=== PATIENT | female | born 1950 | race Caucasian/White ===

== ENCOUNTER 2016-10-05 03:27 | Inpatient (IN) | payer MEDICARE, OTHER ==
--- NOTE | ~2016-10-05 | DS ---
Discharge Summary [facility] [address] [place]. [address] NAME: ELIEZER MUNGUIA : 52 STATUS : DIS IN PAT#: [id number] AGE: 65 ADM/REG DATE : 10/05/16 MR#: [id number] REPORT SERV DATE: 10/10/16 DICTATED BY: JOHN DSOUZA DATE: 10/10/16 REPORT STATUS : Draft TRANSCRIBED BY: MODL DATE: 10/10/16 ADMISSION DATE: 10/05/2016 DISCHARGE DATE: 10/10/2016 DIAGNOSIS ON ADMISSION: 1. Severe hyponatremia with a sodium of 114; history of hyponatremia in the past; hold Lasix; hold hydrochlorothiazide. 2. Chronic obstructive pulmonary disease exacerbation. 3. Diabetes. 4. History of cerebrovascular accidents in the past. 5. Hypothyroidism. 6. History of bipolar disorder with anxiety and depression. DIAGNOSIS ON DISCHARGE: 1. Hyponatremia present on admission, resolved. Her diuretic and Zoloft discontinued. Hyponatremia related to Zoloft and diuretics. 2. Chronic obstructive pulmonary disease exacerbation resolved. 3. Diabetes mellitus controlled. 4. Mildly minimally elevated troponin on admission, related to demand ischemia. Evaluated by fence installer Dr. Cadena. Continue medical treatment. 5. History of depression, currently not depressed. We will hold Zoloft since it is decreasing her sodium significantly. Stable mood. 6. History of bipolar disorder, stable mood on Zyprexa. 7. History of chronic obstructive pulmonary disease. 8. Chronic obstructive pulmonary disease exacerbation present on admission, resolved. CONSULTANTS ON THE CASE: Food Service Technician Dr. Cadena, on 10/05/2016, for abnormal troponin. IMAGING STUDIES: Chest x-ray on 10/05/2016, cardiomegaly, mild vascular prominence. The chest is improved in comparison with previous study. Echocardiogram done on 10/06/2016, showed normal left ventricular systolic function with ejection fraction 50 to 55%. Grossly normal right ventricular size and function. Mild diastolic dysfunction. HISTORY OF PRESENT ILLNESS: Briefly, this is a very pleasant 65-year-old female who was admitted by my colleague, Dr. Arash Mortensen on October 05 with cough, shortness of breath, and evidence of severe hyponatremia. For the details, see history of present illness dictated by Dr. Mortensen. HOSPITAL COURSE: Briefly, the patient was admitted to the hospital and she was seen next day by Dr. Yip and also fence installer was consulted, Dr. Cadena, who evaluated the patient and he thinks that her minimally elevated troponin is related to demand ischemia. He recommended to continue her recommended medications per Cardiology as well as her COPD exacerbation has resolved. She does not have shortness of breath. Her hyponatremia was still fluctuating on October 07 when I started to see this patient, her sodium was 129 and then came down to 126 on October 08. It was noted that patient is on Zoloft since her diuretics were discontinued on admission, but the Zoloft was still continued. The patient Discharge Summary [place] [id number] [facility] [place]. [address] NAME: ELIEZER MUNGUIA : 52 STATUS : DIS IN PAT#: [id number] AGE: 65 ADM/REG DATE : 10/05/16 MR#: [id number] REPORT SERV DATE: 10/10/16 DICTATED BY: JOHN DSOUZA DATE: 10/10/16 REPORT STATUS : Draft TRANSCRIBED BY: JULI DATE: 10/10/16 reported that she takes Zoloft for a long time for depression as well as she is on Zyprexa possibly for bipolar disorder. The patient was told that Zoloft can cause hyponatremia which could be dangerous for life, so it was recommended the patient to hold Zoloft and see how is her mood without Zoloft. For the last two days, she did not receive Zoloft and her mood looks good, so we will recommend to discontinue Zoloft, continue Zyprexa and to see if she will tolerate this regimen. The patient also wanted inpatient rehabilitation, so she was said to [facility]. Her hypertension has been controlled. She was recommended to continue incentive spirometry. Today her sodium improved significantly and it was 130 which is a very good achievement for this patient. The patient was discharged in stable condition on 1. Norvasc 10 mg a day. 2. Aspirin 81 mg a day. 3. Lipitor 40 mg a day. 4. Colace 100 mg p.o. b.i.d. 5. Doxycycline 100 mg twice daily for two more days. 6. Flonase nasal spray two sprays to each nostril twice a day. 7. Levothyroxine 50 mcg a day. 8. Losartan 50 mg a day. 9. Nystatin 5 mL p.o. t.i.d. 10.Zyprexa 10 mg p.o. b.i.d. 11.Requip 1 mg daily. 12.Advair Diskus two puffs inhaled twice a day. 13.Hydrocodone with acetaminophen 5/325 mg one tablet p.o. b.i.d. p.r.n. for pain. Prescription given a total of 12 pills without any refill. 14.Clonidine 0.1 mg p.o. t.i.d. p.r.n. for systolic blood pressure above 160; diastolic above 100. 15.Hydroxyzine 25 p.o. q.6 hours p.r.n. for itching. 16.Zoloft was discontinued. 17.Zantac 300 mg daily. The patient was discharged in stable condition to [facility]. After discharge from [facility], she needs to follow up with her primary care physician as well as with fence installer. Also the patient was recommended to continue Lyrica at 75 mg p.o. twice a day. I spent 45 minutes on discharge. DICTATED BY: Petey Sanders/JULI John Dsouza M.D. Discharge Summary [address] [address] NAME: ELIEZER MUNGUAI : 52 STATUS : DIS IN PAT#: [id number] AGE: 65 ADM/REG DATE : 10/05/16 MR#: [id number] REPORT SERV DATE: 10/10/16 DICTATED BY: JOHN DSOUZA DATE: 10/10/16 REPORT STATUS : Draft TRANSCRIBED BY: MODL DATE: 10/10/16 / [id number] CC: Petey Sanders M.D.
--- NOTE | ~2016-10-05 | HP ---
History And Physical [place] [address] [place]. [address] NAME: ELIEZER MUNGUIA : 52 STATUS : ADM IN [facility]#: [id number] AGE: 65 ADM/REG DATE : 10/05/16 MR#: [id number] REPORT SERV DATE: 10/05/16 DICTATED BY: KAREEN PETERSEN DATE: 10/05/16 REPORT STATUS : Draft TRANSCRIBED BY: MODKina DATE: 10/05/16 DATE OF ADMISSION: 10/05/2016 CHIEF COMPLAINT: A 65-year-old female presenting with cough, shortness of breath, evidence of hyponatremia. HISTORY OF PRESENT ILLNESS: The patient's history was obtained through careful interview with the patient, coupled with review of [facility] medical records. The patient states that for several days she has had a cough productive of clear sputum and increasing shortness of breath characterized by dyspnea on exertion with a prominent wheeze. She has developed subjective fevers and chills, and become lightheaded and incoherent and feeling confused at times. She admits to having a very poor appetite with no significant food intake for about 24 hours or more. She has had several episodes of vomiting as well with constant nausea over the last few days. She describes chest discomfort, a sharp aching quality at the base of her lungs, 8/10 severity exacerbated by coughing. No abdominal pain. No change of bowel or bladder habit. REVIEW OF SYSTEMS: Otherwise 14-point review of systems was obtained and was negative. PAST MEDICAL HISTORY: 1. COPD with history of hypercapnic respiratory failure. 2. Chronic hyponatremia. Baseline sodium seems to be around 128, but she had a sodium of 116 in March 2016 with negative studies for SIADH with low urine sodium, low urine osmolality at that time, other sodiums have been around 122 and 123. 3. Coronary artery disease, status post CABG. 4. Obstructive sleep apnea, but noncompliant with CPAP/obesity hypoventilation syndrome. 5. Childhood asthma. 6. Bilateral occipital stroke, left greater than right. 7. Hypertension. 8. Restless legs syndrome. 9. Diabetes. 10.Hypothyroidism. 11.Chronic pain syndrome with narcotic and benzodiazepine abuse at times. 12.Bipolar disorder with anxiety and depression. 13.Mediastinal lymphadenopathy with negative PET scan in 2009. 14.Left carotid disease and right carotid endarterectomy. 15.Panniculitis. History And Physical [address] [place]. [address] NAME: ELIEZER MUNGUIA : 52 STATUS : ADM IN PAT#: [id number] AGE: 65 ADM/REG DATE : 10/05/16 MR#: [id number] REPORT SERV DATE: 10/05/16 DICTATED BY: KAREEN PETERSEN DATE: 10/05/16 REPORT STATUS : Draft TRANSCRIBED BY: JULI DATE: 10/05/16 PAST SURGICAL HISTORY: 1. Hysterectomy. 2. Cholecystectomy. 3. Appendectomy. 4. Ankle surgeries for crush injury. 5. CABG in 2006. 6. Laparoscopy for a bowel obstruction. 7. Right carotid endarterectomy. 8. Umbilical hernia repair. ALLERGIES: NO KNOWN DRUG ALLERGIES. SOCIAL HISTORY: The patient still smokes about one to two packs per day. History of marijuana use. No alcohol use. She is . Lives with a historiography teacher in [place], [place]. Has two children. One daughter has developmental disability. FAMILY HISTORY: Father with coronary artery disease. Mother with diabetes, kidney disease, and stroke. A strong family history of COPD. CURRENT MEDICATIONS: 1. Zoloft 100 mg p.o. daily. 2. Lyrica 75 mg p.o. b.i.d. 3. Hydrocodone p.r.n. 4. Metoprolol 25 mg p.o. daily. 5. Synthroid 50 mcg p.o. daily. 6. Neurontin 300 mg p.o. t.i.d. 7. Potassium 20 mEq p.o. four times a day. 8. Requip 1 mg nightly. 9. Zyprexa 10 mg p.o. b.i.d. 10.Pepcid 20 mg p.o. b.i.d. 11.Xanax 0.5 mg p.o. t.i.d. 12.Levemir. 13.Hydrochlorothiazide 25 mg p.o. daily. 14.Novolin N. 15.Advair inhale. 16.Lasix 40 mg p.o. daily. PHYSICAL EXAMINATION: VITAL SIGNS: Temperature 98.5, pulse 74, blood pressure 163/79, respiratory rate 21, and O2 saturation 99% on 2 L nasal cannula. GENERAL: An ill-appearing female, but in no evidence of acute distress. HEENT: Pupils equal, round, and reactive to light. No conjunctival pallor. No scleral icterus. Nares are patent. Oropharynx is clear of obstruction. Very dry mucous membranes. NECK: Trachea midline. No thyromegaly. LYMPH: No cervical lymphadenopathy. No supraclavicular lymphadenopathy. RESPIRATORY: The patient does have scattered expiratory and inspiratory wheezes, and scattered upper respiratory rhonchi. No rales. No focal egophony. She has only a slightly History And Physical [place] [address] [facility] [place]. [address] NAME: ELIEZER MUNGUIA : 52 STATUS : ADM IN [facility]#: [id number] AGE: 65 ADM/REG DATE : 10/05/16 MR#: [id number] REPORT SERV DATE: 10/05/16 DICTATED BY: KAREEN PETERSEN DATE: 10/05/16 REPORT STATUS : Draft TRANSCRIBED BY: JULI DATE: 10/05/16 labored respiratory effort, but is not in respiratory distress. CARDIOVASCULAR: Regular rate and rhythm. No murmurs, rubs, or gallops. No current extremity edema is appreciated. ABDOMEN: Soft, nontender, and nondistended. Normal bowel sounds auscultated throughout. No hepatosplenomegaly. DERMATOLOGICAL: Warm and dry extremities. No pallor. No cyanosis. PSYCHIATRIC: Normal affect. Good mood. Alert. She is oriented to the year, location, recent history, but cannot recall that it is September. LABORATORY DATA: White blood cell count 10.1, hemoglobin 13.6, hematocrit 40.1, and platelets 197. Sodium 114, potassium 4.0, chloride 75, bicarb 25, BUN 15, creatinine 0.8, glucose 143, and CPK 306. Urinalysis negative for infection. STUDIES: Chest x-ray was reported as showing COPD and cardiomegaly changes, but nothing acute. ASSESSMENT AND PLAN: 1. Severe hyponatremia with a sodium of 114. The patient has had low sodium before, this appears to be a hypovolemic hyponatremia by exam and history. Hold hydrochlorothiazide. Hold Lasix. Check SIADH studies, nonetheless, place on IV fluids for now. 2. Chronic obstructive pulmonary disease exacerbation. Place on p.o. prednisone, Duo nebulizers, doxycycline. Check a baseline ABG. 3. Diabetes. Check hemoglobin A1c. Place on sliding scale insulin. 4. Late effects of stroke. KPL/MODL Kareen Petersen M.D. / [id number] CC: MD Lucy Frias M.D.
--- NOTE | ~2016-10-05 | CN ---
Consultation Report [place] [address] [place]. [address] NAME: ELIEZER MUNGUIA : 52 STATUS : ADM IN PAT#: [id number] AGE: 65 ADM/REG DATE : 10/05/16 MR#: [id number] REPORT SERV DATE: 10/05/16 DICTATED BY: ANTHONY CALLEJAS JR. DATE: 10/05/16 REPORT STATUS : Draft TRANSCRIBED BY: JULI DATE: 10/05/16 DATE OF CONSULTATION: DICTATION ENDS HERE V[facility]/JULI Anthony Callejas Jr., M.D. / [id number]
--- NOTE | ~2016-10-05 | CN ---
Consultation Report [facility] [address] [place]. [address] NAME: ELIEZER MUNGUIA : 52 STATUS : ADM IN PAT#: [id number] AGE: 65 ADM/REG DATE : 10/05/16 MR#: [id number] REPORT SERV DATE: 10/05/16 DICTATED BY: ANTHONY CADENA JR. DATE: 10/05/16 REPORT STATUS : Draft TRANSCRIBED BY: JULI DATE: 10/05/16 CONSULTATION DATE OF CONSULTATION: 10/05/2016 INDICATIONS FOR REFERRAL: Abnormal troponin, history of CABG, abnormal telemetry. HISTORY OF PRESENT ILLNESS: Eliezer is a 65-year-old morbidly obese, white female smoker with a history of ischemic heart disease with CABG in around 2006. The patient presented with increasing shortness of breath, nausea, diffuse myalgias with muscle cramping. The patient was found to have profound hyponatremia with a sodium of 114 and magnesium of 1.4. She was taking Lasix and thiazide diuretics. The patient denies precordial chest pain, dizziness, or near syncope. She does describe progressive dyspnea on exertion. She had abnormal troponins of 0.25 with elevated CPK, but unremarkable CK-MB portion. EKG revealed right bundle-branch block with left anterior fascicular block. She had intermittent pauses of less than 2 seconds on telemetry with one possible episode of paroxysmal atrial fibrillation, there was significant baseline artifact. PAST MEDICAL HISTORY: Includes coronary artery disease, status post CABG by Dr. Garcia, ten years ago. She has a history of recurrent chronic hyponatremia. She has COPD with a prior history of hypercapnic respiratory failure. She has obstructive sleep apnea with CPAP noncompliance. She has a prior history of reactive airway disease. She has had occipital stroke. She has hypertension. She has bipolar disorder. She has type 2 diabetes. She has chronic pain syndrome. She is status post right carotid endarterectomy. She has hypothyroidism. She has had a hysterectomy, cholecystectomy, and appendectomy. She has had exploratory laparoscopy for bowel obstruction. SOCIAL HISTORY: The patient smokes 1-1/2 to 2 packs a day. She denies alcohol use. She takes chronic narcotic therapy for chronic pain syndrome. FAMILY HISTORY: Significant for father with midlife vascular events. Mother with stroke. ALLERGIES: DENIED. CURRENT MEDICATIONS: Please see the MAR which was reviewed. REVIEW OF SYSTEMS: She describes cough, wheezing, shortness of breath. She describes subjective fevers. She had nausea and anorexia. She denied syncope or near syncope. The remainder as in HPI or negative. PHYSICAL EXAMINATION: VITAL SIGNS: Blood pressure is 183/86, heart rate 76, respirations 16 to18. GENERAL: Morbidly obese female who is laying flat, in no acute distress. Consultation Report [address] [place]. [address] NAME: ELIEZER MUNGUIA : 52 STATUS : ADM IN PAT#: [id number] AGE: 65 ADM/REG DATE : 10/05/16 MR#: [id number] REPORT SERV DATE: 10/05/16 DICTATED BY: ANTHONY CADENA JR. DATE: 10/05/16 REPORT STATUS : Draft TRANSCRIBED BY: JULI DATE: 10/05/16 HEENT: Anicteric, no scleral injection, no oral lesions. NECK: No JVD, supple, no bruits. LUNGS: Mostly clear, few expiratory wheezes . No hyperexpansion. CARDIOVASCULAR: Regular rate and rhythm with distant heart sounds. ABDOMEN: Soft, nontender. Normoactive bowel sounds, no hepatosplenomegaly. EXTREMITIES: No clubbing, cyanosis or trace peripheral edema. SKIN: No visible rashes. NEURO/PSY: Normal affect, alert and oriented x3. LABORATORY DATA: BNP is 214, sodium is 121 improved from 114, potassium is 4.5, magnesium is 1.4, creatinine is 0.64. CPK 713 with an MB of 24. Troponin 0.25. White count 10.2, hematocrit 38 with microcytosis, platelets are 180. MEDICAL DECISION MAKIN. Abnormal troponin. This is most likely demand release with her COPD exacerbation, electrolyte imbalance etc. she has no active angina currently. We will check echocardiography. We will consider PET stress testing as a means of risk stratification later during this hospital stay when the above is corrected. 2. Telemetry pauses/abnormal EKG. Her pauses are less than 2 seconds. She has no signs or symptoms of syncope or presyncope. There was one potential episode of possible paroxysmal atrial fibrillation. There was significant baseline artifact. We will continue telemetry observation and correct electrolytes. 3. Tobacco cessation counseling was given. 4. Hypertension. We will adjust medicines as needed during the hospital stay. MADISON/UJLI Anthony Cadena Jr., M.D. / [id number] CC: MD Lucy Frias M.D.
[~2016-10-05 03:27] MED LIST: *UNABLE2; ACET500CAP PO; ADVAIR115P INH; ADVAIR250 INH; ALPRAZOLAM; AMB10 PO; ASAB PO; ASAEC PO; BACDS PO; BACLOFEN; CAT1 PO; CEFT5 PO; CPZ10 PO; CPZ25 PO; DEXILANT; DURA25 TOP; ESTRACE0.5 MG PO; ESTRACE1 MG PO; FLEX PO; FLONASE NAS; FLOVENT; FLOVENT DISK50 MCG INH; FOLIC ACID; GABAPENTIN; GLUCOPHXR PO; GLUCPH PO; HABIT21 TOP; HCTZ PO; HCTZ25B PO; HUMI PO; HYDROCHLOROT25 MG PO; IMODIUM AD PO; INSNOVN SC; IPRA17AE INH; KLOR-CON 1010 MEQ PO; KLOR-CON M2020 MEQ PO; L40 PO; LEVAQUIN750 MG PO; LEVEMFLXPN SC; LEVEMIR; LEVEMIR SC; LEVOTHYROXIN50 MCG PO; LIDO5OINT TOP; LIOR10 PO; LIPITOR10 PO; LOP25 PO; LOP50 PO; LOPRESSOR PO; LYRICA100 MG PO; LYRICA75 PO; Levothyroxin PO; MACROBID PO; MAGNESIUM OXIDE; MAGOX4 PO; METAMUCIL CAN7 OZ PO; METHOC750B PO; METPAKSF PO; MICONAZOLE2 % V; MIRALAXPKT PO; MOTRIN IB200 MG PO; MULTIPLE VIT PO; MYCOSCROI TOP; NEUR300 PO; NICODERM C14 MG/24 H TOP; NORCO1 TA1 PO; NORCO1 TAB PO; P10 PO; P20 PO; PEP20 PO; PERCOCET1 TA4 PO; PERCOCET1 TA5 PO; POTASSIUM; PR25 PO; PREDNISONE; PROAIR HFA INH; PROMETHAZINE; PROTONIX PO; PROVHFA INH; REMERON45 MG PO; REQUIP1 PO; REQUIP5 PO; SENOKOTS PO; SPIRIVA INH; SYN.05 PO; T PO; THORAZINE 25 MG25 MG PO; THORAZINE 50 MG50 MG PO; THYROID PO; VENTOLIN HFA INH; VIST25 PO; VITAMIN B-1500 MG PO; VITC500 PO; VOLTAREN1 % TOP; X5 PO; XANAX1 MG PO; XANAX2 MG PO; Z-PAK PO; ZANAFLEX 4 MG TA4 MG PO; ZOCOR10 PO; ZOL100 PO; ZOL50 PO; ZYPREXA PO; ZYPREXA10 MG PO
[2016-10-05 05:16] LABS: ASCORBIC ACID (UR NOT ORDER) NEG (NEG); BILIRUBIN, URINE NEGATIVE (NEG); KETONE, URINE NEGATIVE (NEG); LEUKOCYTE ESTERASE(NOT OR NEG (NEG); WBC (NOT ORDERED) (RFLEX) < 1 (0-5)
[2016-10-05 05:19] LABS: CREATININE, URINE 14.4 MG/DL
[2016-10-05 06:50] LABS: BASOPHILS 0.2 %; BASOPHILS ABSOLUTE 0.02 10/3/uL (0.0-0.16); EOSINOPHILS 0.8 %; EOSINOPHILS ABSOLUTE 0.09 10/3/uL (0.0-0.53); HEMOGLOBIN 13.3 g/dL (12.0-16.0); IMMATURE GRANULOCYTES 0.6 %; IMMATURE GRANULOCYTES ABSOLUTE 0.06 10/3/uL (0.0-0.11); LYMPHOCYTES 17.7 %; LYMPHOCYTES ABSOLUTE 1.88 10/3/uL (0.67-4.30); MEAN CORPUS HGB CONC 34.6 g/dL (32.0-36.0); MEAN PLATELET VOLUME 8.3 fL (9.2-13.0); MONOCYTES 5.4 %; MONOCYTES ABSOLUTE 0.57 10/3/uL (0.21-1.20); NEUTROPHILS 75.3 %; NEUTROPHILS ABSOLUTE 8.01 10/3/uL (2.02-8.40); PLATELET COUNT 190 10/3/uL (150-400); RBC DISTRIBUTION WIDTH 12.7 % (12.0-16.0); RED CELL COUNT 5.13 10/6/uL (4.0-5.6); WHITE BLOOD CELLS 10.6 10/3/uL (4.5-10.5)
[2016-10-05 06:51] LABS: HEMATOCRIT 38.4 % (36.0-48.0); MANUAL DIFF NO %; MEAN CORPUSCULAR HEMOGLOB 25.9 pg (26.0-34.0); MEAN CORPUSCULAR VOLUME 74.9 fL (80-100)
[2016-10-05 06:54] LABS: PARTIAL THROMBO TIME 29.7 SEC (22.5-37.2); PROTIME (NOT ORD) 13.5 SEC (12.0-14.5)
[2016-10-05 07:05] LABS: ALBUMIN 3.4 G/DL (3.5-5.0); BUN (BLOOD UREA NITROGEN) 11 MG/DL (6-23); CALCIUM, SERUM 8.9 MG/DL (8.5-10.4); GFR AFRICAN AMERICAN 90 ML/MIN (>=60); GFR NON AFRICAN AMERICAN 78 ML/MIN (>=60); GLOBULIN 3.5 G/DL (2.5-4.1); GLUCOSE, SERUM 115 MG/DL (60-99); POTASSIUM, SERUM 4.2 MMOL/L (3.5-5.3); SGOT(AST) 28 U/L (5-40); SGPT(ALT) 21 U/L (5-65); TOTAL BILIRUBIN 0.6 MG/DL (0-1.2); TOTAL PROTEIN 6.9 G/DL (6.0-8.5)
[2016-10-05 07:06] LABS: ALKALINE PHOSPHATASE 128 U/L (45-117); CHLORIDE, SERUM 82 MMOL/L (96-112); CO2 (CARBON DIOXIDE) 30 MMOL/L (24-34); SODIUM, SERUM 117 MMOL/L (135-148); TROPONIN I 0.21 NG/ML (<0.05)
[2016-10-05 07:15] LABS: HYPOCHROMIA 1+ (3-10/OIF) (0-2/OIF); PLATELET ESTIMATE ADQ (ADEQUATE)
[2016-10-05] MEDS ORDERED: ZANTAC300 MG PO (10:14)
[2016-10-05] MEDS ORDERED: PRAVAC PO (10:15)
[2016-10-05] MEDS ORDERED: NORV5 PO (10:15)
[2016-10-05] MEDS ORDERED: ZIAC10 PO (10:15)
[2016-10-05] MEDS ORDERED: MOBIC7.5 PO (10:16)
[2016-10-05] MEDS ORDERED: COZ50 PO (10:16)
[2016-10-05] MEDS ORDERED: AT25 PO (10:17)
[2016-10-05 11:28] LABS: BASOPHILS 0.2 %; BASOPHILS ABSOLUTE 0.02 10/3/uL (0.0-0.16); HEMATOCRIT 38.4 % (36.0-48.0); HEMOGLOBIN 13.4 g/dL (12.0-16.0); IMMATURE GRANULOCYTES 0.5 %; IMMATURE GRANULOCYTES ABSOLUTE 0.05 10/3/uL (0.0-0.11); LYMPHOCYTES 19.8 %; LYMPHOCYTES ABSOLUTE 2.02 10/3/uL (0.67-4.30); MANUAL DIFF NO %; MEAN CORPUS HGB CONC 34.9 g/dL (32.0-36.0); MEAN CORPUSCULAR HEMOGLOB 26.5 pg (26.0-34.0); MEAN PLATELET VOLUME 8.4 fL (9.2-13.0); MONOCYTES ABSOLUTE 0.61 10/3/uL (0.21-1.20); NEUTROPHILS 72.5 %; NEUTROPHILS ABSOLUTE 7.39 10/3/uL (2.02-8.40); PLATELET COUNT 180 10/3/uL (150-400); RBC DISTRIBUTION WIDTH 12.8 % (12.0-16.0); RED CELL COUNT 5.05 10/6/uL (4.0-5.6); WHITE BLOOD CELLS 10.2 10/3/uL (4.5-10.5)
[2016-10-05 11:35] LABS: PROTIME (NOT ORD) 13.4 SEC (12.0-14.5)
[2016-10-05 11:50] LABS: A/G RATIO 0.9 (0.7-1.9); ALBUMIN 3.2 G/DL (3.5-5.0); ALKALINE PHOSPHATASE 123 U/L (45-117); BUN (BLOOD UREA NITROGEN) 11 MG/DL (6-23); CALCIUM, SERUM 8.7 MG/DL (8.5-10.4); CHLORIDE, SERUM 84 MMOL/L (96-112); CK-MB 24.5 NG/ML; CO2 (CARBON DIOXIDE) 29 MMOL/L (24-34); CREATININE 0.64 MG/DL (0.55-1.02); GFR AFRICAN AMERICAN 109 ML/MIN (>=60); GFR NON AFRICAN AMERICAN 94 ML/MIN (>=60); GLOBULIN 3.5 G/DL (2.5-4.1); GLUCOSE, SERUM 107 MG/DL (60-99); POTASSIUM, SERUM 4.5 MMOL/L (3.5-5.3); SGOT(AST) 32 U/L (5-40); SGPT(ALT) 20 U/L (5-65); SODIUM, SERUM 121 MMOL/L (135-148); TOTAL BILIRUBIN 0.6 MG/DL (0-1.2); TOTAL PROTEIN 6.7 G/DL (6.0-8.5)
[2016-10-05 11:55] LABS: CKMB INDEX (NOT ORD) 3.4; CPK 713 U/L (0-200)
[2016-10-05 11:56] LABS: TROPONIN I 0.25 NG/ML (<0.05)
[2016-10-05 21:14] LABS: BUN (BLOOD UREA NITROGEN) 13 MG/DL (6-23); CALCIUM, SERUM 8.5 MG/DL (8.5-10.4); CHLORIDE, SERUM 85 MMOL/L (96-112); CO2 (CARBON DIOXIDE) 30 MMOL/L (24-34); GFR AFRICAN AMERICAN 90 ML/MIN (>=60); GFR NON AFRICAN AMERICAN 78 ML/MIN (>=60); POTASSIUM, SERUM 4.7 MMOL/L (3.5-5.3); SODIUM, SERUM 122 MMOL/L (135-148)
[2016-10-05 21:15] LABS: GLUCOSE, SERUM 143 MG/DL (60-99)
[2016-10-06 01:41] LABS: BUN (BLOOD UREA NITROGEN) 15 MG/DL (6-23); CALCIUM, SERUM 8.7 MG/DL (8.5-10.4); CHLORIDE, SERUM 88 MMOL/L (96-112); CO2 (CARBON DIOXIDE) 30 MMOL/L (24-34); CREATININE 0.67 MG/DL (0.55-1.02); GFR AFRICAN AMERICAN 108 ML/MIN (>=60); GFR NON AFRICAN AMERICAN 93 ML/MIN (>=60); GLUCOSE, SERUM 125 MG/DL (60-99); SODIUM, SERUM 125 MMOL/L (135-148); TROPONIN I 0.18 NG/ML (<0.05)
[2016-10-06 07:31] LABS: BASOPHILS 0.1 %; BASOPHILS ABSOLUTE 0.01 10/3/uL (0.0-0.16); EOSINOPHILS 0.7 %; EOSINOPHILS ABSOLUTE 0.07 10/3/uL (0.0-0.53); HEMATOCRIT 40.5 % (36.0-48.0); HEMOGLOBIN 13.8 g/dL (12.0-16.0); IMMATURE GRANULOCYTES 0.5 %; IMMATURE GRANULOCYTES ABSOLUTE 0.05 10/3/uL (0.0-0.11); LYMPHOCYTES 19.3 %; LYMPHOCYTES ABSOLUTE 1.87 10/3/uL (0.67-4.30); MEAN CORPUS HGB CONC 34.1 g/dL (32.0-36.0); MEAN CORPUSCULAR HEMOGLOB 26.4 pg (26.0-34.0); MEAN CORPUSCULAR VOLUME 77.6 fL (80-100); MEAN PLATELET VOLUME 8.5 fL (9.2-13.0); MONOCYTES 5.3 %; MONOCYTES ABSOLUTE 0.51 10/3/uL (0.21-1.20); NEUTROPHILS 74.1 %; NEUTROPHILS ABSOLUTE 7.19 10/3/uL (2.02-8.40); PLATELET COUNT 202 10/3/uL (150-400); RBC DISTRIBUTION WIDTH 12.7 % (12.0-16.0); RED CELL COUNT 5.22 10/6/uL (4.0-5.6); WHITE BLOOD CELLS 9.7 10/3/uL (4.5-10.5)
[2016-10-06 07:32] LABS: MANUAL DIFF NO %
[2016-10-06 07:55] LABS: CALCIUM, SERUM 8.6 MG/DL (8.5-10.4); CHLORIDE, SERUM 92 MMOL/L (96-112); CO2 (CARBON DIOXIDE) 29 MMOL/L (24-34); CREATININE 0.57 MG/DL (0.55-1.02); GFR AFRICAN AMERICAN 114 ML/MIN (>=60); GFR NON AFRICAN AMERICAN 98 ML/MIN (>=60); GLUCOSE, SERUM 107 MG/DL (60-99); POTASSIUM, SERUM 4.3 MMOL/L (3.5-5.3); SODIUM, SERUM 128 MMOL/L (135-148)
[2016-10-06 07:57] LABS: BUN (BLOOD UREA NITROGEN) 11 MG/DL (6-23); TROPONIN I 0.19 NG/ML (<0.05)
[2016-10-06 12:22] LABS: BUN (BLOOD UREA NITROGEN) 14 MG/DL (6-23); CALCIUM, SERUM 8.4 MG/DL (8.5-10.4); CHLORIDE, SERUM 91 MMOL/L (96-112); CO2 (CARBON DIOXIDE) 30 MMOL/L (24-34); CREATININE 0.72 MG/DL (0.55-1.02); GFR AFRICAN AMERICAN 103 ML/MIN (>=60); GFR NON AFRICAN AMERICAN 89 ML/MIN (>=60); GLUCOSE, SERUM 108 MG/DL (60-99); POTASSIUM, SERUM 4.8 MMOL/L (3.5-5.3); SODIUM, SERUM 124 MMOL/L (135-148)
[2016-10-06 18:38] LABS: BUN (BLOOD UREA NITROGEN) 17 MG/DL (6-23); CALCIUM, SERUM 8.6 MG/DL (8.5-10.4); CHLORIDE, SERUM 92 MMOL/L (96-112); CO2 (CARBON DIOXIDE) 29 MMOL/L (24-34); CREATININE 0.71 MG/DL (0.55-1.02); GFR AFRICAN AMERICAN 104 ML/MIN (>=60); GFR NON AFRICAN AMERICAN 90 ML/MIN (>=60); GLUCOSE, SERUM 106 MG/DL (60-99); POTASSIUM, SERUM 5.1 MMOL/L (3.5-5.3); SODIUM, SERUM 128 MMOL/L (135-148)
[2016-10-07 01:27] LABS: BUN (BLOOD UREA NITROGEN) 16 MG/DL (6-23); CALCIUM, SERUM 8.9 MG/DL (8.5-10.4); CHLORIDE, SERUM 92 MMOL/L (96-112); CO2 (CARBON DIOXIDE) 30 MMOL/L (24-34); CREATININE 0.69 MG/DL (0.55-1.02); GFR AFRICAN AMERICAN 107 ML/MIN (>=60); GFR NON AFRICAN AMERICAN 92 ML/MIN (>=60); GLUCOSE, SERUM 125 MG/DL (60-99); POTASSIUM, SERUM 4.8 MMOL/L (3.5-5.3); SODIUM, SERUM 128 MMOL/L (135-148)
[2016-10-07 06:22] LABS: BASOPHILS 0.1 %; BASOPHILS ABSOLUTE 0.01 10/3/uL (0.0-0.16); EOSINOPHILS 0.5 %; EOSINOPHILS ABSOLUTE 0.05 10/3/uL (0.0-0.53); HEMATOCRIT 41.8 % (36.0-48.0); HEMOGLOBIN 14.1 g/dL (12.0-16.0); IMMATURE GRANULOCYTES 0.5 %; IMMATURE GRANULOCYTES ABSOLUTE 0.05 10/3/uL (0.0-0.11); LYMPHOCYTES 20.7 %; LYMPHOCYTES ABSOLUTE 1.93 10/3/uL (0.67-4.30); MANUAL DIFF NO %; MEAN CORPUS HGB CONC 33.7 g/dL (32.0-36.0); MEAN CORPUSCULAR HEMOGLOB 26.5 pg (26.0-34.0); MEAN CORPUSCULAR VOLUME 78.4 fL (80-100); MEAN PLATELET VOLUME 8.5 fL (9.2-13.0); MONOCYTES 3.7 %; MONOCYTES ABSOLUTE 0.35 10/3/uL (0.21-1.20); NEUTROPHILS 74.5 %; NEUTROPHILS ABSOLUTE 6.95 10/3/uL (2.02-8.40); PLATELET COUNT 205 10/3/uL (150-400); RBC DISTRIBUTION WIDTH 12.7 % (12.0-16.0); RED CELL COUNT 5.33 10/6/uL (4.0-5.6); WHITE BLOOD CELLS 9.3 10/3/uL (4.5-10.5)
[2016-10-07 06:32] LABS: BUN (BLOOD UREA NITROGEN) 13 MG/DL (6-23); CALCIUM, SERUM 9.4 MG/DL (8.5-10.4); CHLORIDE, SERUM 93 MMOL/L (96-112); CO2 (CARBON DIOXIDE) 31 MMOL/L (24-34); CREATININE 0.68 MG/DL (0.55-1.02); GFR AFRICAN AMERICAN 107 ML/MIN (>=60); GFR NON AFRICAN AMERICAN 92 ML/MIN (>=60); GLUCOSE, SERUM 109 MG/DL (60-99); POTASSIUM, SERUM 4.8 MMOL/L (3.5-5.3); SODIUM, SERUM 129 MMOL/L (135-148)
[2016-10-08 06:47] LABS: CALCIUM, SERUM 9.6 MG/DL (8.5-10.4); CHLORIDE, SERUM 91 MMOL/L (96-112); CO2 (CARBON DIOXIDE) 30 MMOL/L (24-34); CREATININE 0.73 MG/DL (0.55-1.02); GFR AFRICAN AMERICAN 101 ML/MIN (>=60); GFR NON AFRICAN AMERICAN 87 ML/MIN (>=60); GLUCOSE, SERUM 105 MG/DL (60-99); POTASSIUM, SERUM 4.2 MMOL/L (3.5-5.3); SODIUM, SERUM 126 MMOL/L (135-148)
[2016-10-08 06:48] LABS: BUN (BLOOD UREA NITROGEN) 19 MG/DL (6-23)
[2016-10-09 06:45] LABS: BUN (BLOOD UREA NITROGEN) 18 MG/DL (6-23); CALCIUM, SERUM 9.2 MG/DL (8.5-10.4); CHLORIDE, SERUM 91 MMOL/L (96-112); CO2 (CARBON DIOXIDE) 33 MMOL/L (24-34); CREATININE 0.76 MG/DL (0.55-1.02); GFR AFRICAN AMERICAN 96 ML/MIN (>=60); GFR NON AFRICAN AMERICAN 83 ML/MIN (>=60); GLUCOSE, SERUM 101 MG/DL (60-99); POTASSIUM, SERUM 4.2 MMOL/L (3.5-5.3); SODIUM, SERUM 128 MMOL/L (135-148)
[2016-10-10 10:16] LABS: BUN (BLOOD UREA NITROGEN) 19 MG/DL (6-23); CALCIUM, SERUM 9.2 MG/DL (8.5-10.4); CHLORIDE, SERUM 91 MMOL/L (96-112); CO2 (CARBON DIOXIDE) 30 MMOL/L (24-34); CREATININE 0.88 MG/DL (0.55-1.02); GFR AFRICAN AMERICAN 80 ML/MIN (>=60); GFR NON AFRICAN AMERICAN 69 ML/MIN (>=60); GLUCOSE, SERUM 151 MG/DL (60-99); POTASSIUM, SERUM 4.2 MMOL/L (3.5-5.3); SODIUM, SERUM 130 MMOL/L (135-148)
[2016-10-22] MEDS ORDERED: NORV10 PO (15:11)
[2016-10-22] MEDS ORDERED: FLONASE NAS (15:11)
[2016-10-22] MEDS ORDERED: HALF81 PO (15:11)
[2016-10-22] MEDS ORDERED: SYN.05 PO (15:12)
[2016-10-22] MEDS ORDERED: COZ50 PO (15:12)
[2016-10-22] MEDS ORDERED: RANITIDINE300 MG PO (15:13)
[2016-10-22] MEDS ORDERED: LYRICA75 PO (15:13)
[2016-10-22] MEDS ORDERED: REQUIP1 PO (15:13)
[2016-10-22] MEDS ORDERED: MAGOX4 PO (15:14)
[2016-10-22] MEDS ORDERED: DORYX100 MG PO (15:14)
[2016-10-22] MEDS ORDERED: AT25 PO (15:16)
[2016-10-22] MEDS ORDERED: GEODON20 PO (15:16)
[2016-10-22] MEDS ORDERED: ZYP5 PO (15:16)
[2016-10-22] MEDS ORDERED: ADVAIR250 INH (15:17)
[2016-10-22] MEDS ORDERED: GEODON40 MG PO (15:17)
[2016-10-22] MEDS ORDERED: BUSPAR5 PO (15:17)
[2016-10-22] MEDS ORDERED: HUMALOGPEN SC (15:26)
[2016-12-29] MEDS ORDERED: PLAVIX PO (07:32)
[2016-12-29] MEDS ORDERED: LIPITOR40 PO (07:32)
[2016-12-29] MEDS ORDERED: ASAB PO (07:32)
[2016-12-29] MEDS ORDERED: FLONASE NAS (07:32)
[2016-12-29] MEDS ORDERED: PEP20 PO (07:32)
[2016-12-29] MEDS ORDERED: DIOV160 PO (07:33)
[2016-12-29] MEDS ORDERED: MAGOX4 PO (07:33)
[2016-12-29] MEDS ORDERED: IMDUR30 PO (07:33)
[2016-12-29] MEDS ORDERED: REQUIP1 PO (07:34)
[2016-12-29] MEDS ORDERED: MICRO-K10 MEQ PO (07:34)
[2016-12-29] MEDS ORDERED: FERROUS SULF325 M1 PO (07:35)
[2016-12-29] MEDS ORDERED: L20 PO (07:35)
[2016-12-29] MEDS ORDERED: MIRALAX POWDER1 PKT PO (07:35)
[2016-12-29] MEDS ORDERED: GEODON20 PO (07:35)
[2016-12-29] MEDS ORDERED: MELATONIN5 M1 PO (07:36)
[2016-12-29] MEDS ORDERED: COREG25 PO (07:36)
[2016-12-29] MEDS ORDERED: HABIT7 TOP (07:36)
[2016-12-29] MEDS ORDERED: ZYP2 PO (07:37)
[2016-12-29] MEDS ORDERED: GEODON60 MG PO (07:37)
[2016-12-29] MEDS ORDERED: ADVAIR115P INH (07:37)
[2016-12-29] MEDS ORDERED: NOVLOGPUMP SC (07:38)
[2016-12-29] MEDS ORDERED: ATROVENTUD INH (07:38)
[2016-12-29] MEDS ORDERED: LEVOTHYROXIN75 MCG PO (07:39)
[2016-12-29] MEDS ORDERED: VOLTAREN1 % TOP (07:39)
[2016-12-29] MEDS ORDERED: NORCO1 TAB PO (07:39)
[2016-12-29] MEDS ORDERED: NORV5 PO (07:39)
[2016-12-29] MEDS ORDERED: LYRICA75 PO (07:40)
[2016-12-29] MEDS ORDERED: BUSPIRONE7.5 MG PO (07:40)
[2016-12-29] MEDS ORDERED: CILOXAN OPH (07:43)
[2016-12-29] MEDS ORDERED: PREDNISOLONE SODIUM PHOSPHATE 1% OPH (07:43)
[2016-12-29] MEDS ORDERED: GERI-LANTA PO (07:44)
[2016-12-29] MEDS ORDERED: NITROSTAT0.4 MG SL (07:44)
[2016-12-29] MEDS ORDERED: T PO (07:44)
[2017-01-02] MEDS ORDERED: ASAB PO (17:02)
[2017-01-02] MEDS ORDERED: NOVOPEN SC (17:12)
[2017-01-02] MEDS ORDERED: LEVAQUIN750 MG PO (17:13)
[2017-01-04] MEDS ORDERED: NOVOLOG SC (20:55)
[2017-01-04] MEDS ORDERED: NORV5 PO (20:56)
[2017-01-04] MEDS ORDERED: ADVAIR115P INH (20:56)
[2017-01-04] MEDS ORDERED: LIPITOR40 PO (20:57)
[2017-01-04] MEDS ORDERED: COREG25 PO (20:57)
[2017-01-04] MEDS ORDERED: PLAVIX PO (20:58)
[2017-01-04] MEDS ORDERED: BUSPIRONE7.5 MG PO (20:58)
[2017-01-04] MEDS ORDERED: PEP20 PO (20:58)
[2017-01-04] MEDS ORDERED: IMDUR30 PO (20:59)
[2017-01-04] MEDS ORDERED: NORCO1 TAB PO (20:59)
[2017-01-04] MEDS ORDERED: LEVAQUIN750 MG PO (21:00)
[2017-01-04] MEDS ORDERED: LEVOTHYROXIN75 MCG PO (21:00)
[2017-01-04] MEDS ORDERED: LYRICA75 PO (21:01)
[2017-01-04] MEDS ORDERED: NITROSTAT0.4 MG SL (21:01)
[2017-01-04] MEDS ORDERED: REQUIP1 PO (21:02)
[2017-01-04] MEDS ORDERED: VOLTAREN1 % TOP (21:02)
[2017-01-04] MEDS ORDERED: GEODON20 PO (21:04)
[2017-01-04] MEDS ORDERED: GEODON60 MG PO (21:05)
[2017-01-04] MEDS ORDERED: DUONEB INH (21:07)
[2017-01-04] MEDS ORDERED: FLONASE NAS (21:07)
[2017-01-04] MEDS ORDERED: CILOXAN OPH (21:09)
[2017-01-04] MEDS ORDERED: PREDFORTE OPH (21:10)
[2017-01-04] MEDS ORDERED: ASAB PO (21:11)
[2017-01-04] MEDS ORDERED: ALKA-SELTZER O1 EACH PO (21:16)
[2017-01-04] MEDS ORDERED: MELA3 PO (21:19)
[2017-01-04] MEDS ORDERED: MAGOX4 PO (21:19)
== END 2016-10-10 16:56 | DRG 191 ==
LOC: 2SO 03:27
PROVIDERS: Hospitalist; Student in an Organized Health Care Education/Training Program
DX: J44.1 Chronic obstructive pulmonary disease with (acute) exacerbation (principal); E87.1 Hypo-osmolality and hyponatremia; I24.8 Other forms of acute ischemic heart disease; B37.0 Candidal stomatitis; M62.82 Rhabdomyolysis; I48.0 Paroxysmal atrial fibrillation; I10 Essential (primary) hypertension; G25.81 Restless legs syndrome; E66.2 Morbid (severe) obesity with alveolar hypoventilation; Z68.41 Body mass index [BMI] 40.0-44.9, adult; I25.10 Atherosclerotic heart disease of native coronary artery without angina pectoris; G47.33 Obstructive sleep apnea (adult) (pediatric); E11.9 Type 2 diabetes mellitus without complications; E03.9 Hypothyroidism, unspecified; F17.210 Nicotine dependence, cigarettes, uncomplicated; G89.4 Chronic pain syndrome; F31.9 Bipolar disorder, unspecified; F41.9 Anxiety disorder, unspecified; I45.10 Unspecified right bundle-branch block; Z95.1 Presence of aortocoronary bypass graft; Z91.19 Patient's noncompliance with other medical treatment and regimen; Z98.890 Other specified postprocedural states; Z82.49 Family history of ischemic heart disease and other diseases of the circulatory system; Z83.3 Family history of diabetes mellitus; Z82.3 Family history of stroke; Z82.5 Family history of asthma and other chronic lower respiratory diseases; Z86.73 Personal history of transient ischemic attack (TIA), and cerebral infarction without residual deficits; Z87.898 Personal history of other specified conditions
CPT/HCPCS: 71010; 80048; 80053; 81001; 82533; 82550; 82553; 82570; 82962; 83735; 83880; 83930; 83935; 84300; 84443; 84484; 85025; 85610; 85730; 87449; 93005; 94640; 97161-GP; A9270-GY; C8929; G8978-CJ-GP; G8979-CJ-GP; G8980-CJ-GP; J2405; J3475; Q9957